=== PATIENT | male | born 1960 | race Caucasian/White ===

== ENCOUNTER 2016-12-25 08:18 | Emergency (ER) | payer OTHER ==
[2016-12-25] MEDS ORDERED: SODIUM CHLORIDE 0.9% 1,000 ML ONE ×2 (09:03→09:58)
[2016-12-25] MEDS ORDERED: KETOROLAC TROMETHAMINE 30 MG/ML 1 ML VIAL ONE (09:03)
[2016-12-25] MEDS ORDERED: ONDANSETRON 4 MG/2ML 2 ML VIAL ONE (09:03)
[2016-12-25] MEDS ORDERED: PANTOPRAZOLE SODIUM 40 MG VIAL IV ONE (09:03)
[2016-12-25] MEDS ORDERED: DIPHENHYDRAMINE HCL 50 MG/1 ML VIAL ONE ×2 (09:04→12:02)
[2016-12-25] MEDS ORDERED: HALOPERIDOL LACTATE 5 MG/1 ML AMP ONE (09:04)
[2016-12-25 09:36] LABS: ABSOLUTE NEUTROPHIL COUNT 16.6 K/mm3 (1.8-7.7); BASO % 0.1 % (0.2-1.0); EOS # 0.1 (0.0-0.5); EOS % 0.6 % (0.9-2.9); HEMATOCRIT 46.3 % (32.0-52.0); HEMOGLOBIN 15.7 gm/l (14.0-18.0); IMM NEUT # 0.1 K/mm3 (0-0.2); IMM NEUT% 0.3 % (0-1); LYMPH # 1.7 (1.0-4.8); LYMPH % 8.8 % (15-45); MEAN CELL VOLUME 99.4 fl (80.0-94.0); MEAN CORPUSCULAR HEMOGLOBIN 33.7 pg (27.0-31.0); MEAN CORPUSCULAR HGB CONC 33.9 g/dl (33.0-37.0); MEAN PLATELET VOLUME 13.5 fl (7.4-10.4); MONO # 0.9 (0.0-0.8); MONO % 4.7 % (4-12); NEUT % 85.5 % (43-75); PLATELET COUNT 92 K/mm3 (130-400); RED CELL DISTRIBUTION WIDTH 12.3 % (11.5-14.5)
[2016-12-25 09:44] LABS: ALB/GLOB RATIO 1.4 (>1.0); CALCIUM 9.1 mg/dL (8.6-10.3)
[2016-12-25 09:47] LABS: TROPONIN I < 0.01 ng/ml (0.0-0.06)
[2016-12-25 09:51] LABS: CKMB ISOENZYME 2.6 ng/ml (0.6-6.3)
[2016-12-25 11:20] LABS: SPECIFIC GRAVITY 1.025 (1.001-1.030); URINE APPEARANCE CLEAR; URINE BILIRUBIN NEGATIVE (NEGATIVE); URINE BLOOD NEGATIVE (NEGATIVE); URINE COLOR YELLOW; URINE GLUCOSE (UA) NEGATIVE (NEGATIVE); URINE LEUKOCYTE ESTERASE TRACE (NEGATIVE); URINE NITRITE NEGATIVE (NEGATIVE); URINE PROTEIN TRACE (NEGATIVE); URINE UROBILINOGEN NORMAL (0-1 mg/dl)
[2016-12-25 11:22] LABS: AMPHETAMINES/METHAMPHETAMINES NEGATIVE (NEGATIVE); COCAINE NEGATIVE (NEGATIVE); MARIJUANA POSITIVE (NEGATIVE); METHADONE NEGATIVE (NEGATIVE); OPIATES NEGATIVE (NEGATIVE); TRICYCLIC ANTIDEPRESSANTS NEGATIVE (NEGATIVE)
[2016-12-25 11:29] LABS: URINE BACTERIA 0; URINE EPITHELIAL CELLS FEW RENAL EP CELLS /hpf; URINE RBC 0 /hpf; URINE WBC 0-2 /hpf
[2016-12-25 11:30] LABS: URINE CASTS FEW HYALINE /lpf
[2016-12-25] MEDS ORDERED: PREDNISONE 20 MG TABLET ONE (12:02)
== END 2016-12-25 14:00 | disposition home or self-care (01) ==
LOC: ED 08:18
DX: R10.9 Unspecified abdominal pain (principal); R11.2 Nausea with vomiting, unspecified; L27.0 Generalized skin eruption due to drugs and medicaments taken internally
CPT/HCPCS: 83690; 82150; 85025; 82550; 82553; 80305; 80053; 80307; 84484; 81001; 96375 ×3; 96376; 99284 ×2; 96374; 96361 ×3; J1200 ×2; J1630; J7512; C9113; J1885; J2405; J7030 ×2